=== PATIENT | female | born 1985 | race Caucasian/White ===

== ENCOUNTER 2021-01-06 19:25 | Emergency (ER) | payer MEDICAID ==
[~2021-01-06] VITALS: Ht 165.1 cm; Wt 90.9 kg
--- NOTE | 2021-01-06 19:54 | PHYS DOC ---
General Adult EDM: Chief Complaint: VAGINAL BLEEDING HPI: HPI: Patient is a 35-year-old female who presents with vaginal bleeding and . Patient states that she was sitting on the couch watching TV when she felt like her pants were wet. Patient states that she went to the bathroom and had bright red blood in the toilet. Patient is G4, P3. Patient denies pain. Patient states the last time that she delivered, she had to be hospitalized due to her blood pressure. Patient has history of hypertension. (CHINMAY DE SANTIAGO APRN) Review of Systems: Review of Systems: Constitutional: Denies fever or chills Eyes: Denies change in visual acuity HENT: Denies nasal congestion or sore throat Respiratory: Denies cough or shortness of breath Cardiovascular: Denies chest pain or edema GI: Denies abdominal pain, nausea, vomiting, bloody stools or diarrhea /vaginal: Denies dysuria, reports vaginal bleeding Musculoskeletal: Denies back pain or joint pain Integument: Denies rash Neurologic: Denies headache, focal weakness or sensory changes Endocrine: Denies polyuria or polydipsia Lymphatic: Denies swollen glands Psychiatric: Denies depression or anxiety (CHINMAY DE SANTIAGO APRN) Physical Exam: PE: Constitutional: Well developed, well nourished, no acute distress, non-toxic appearance. [] HENT: Normocephalic, atraumatic, bilateral external ears normal, oropharynx moist, no oral exudates, nose normal. [] Eyes: PERRLA, EOMI, conjunctiva normal, no discharge. [] Neck: Normal range of motion, no tenderness, supple, no stridor. [] Cardiovascular:Heart rate regular rhythm, no murmur [] Lungs & Thorax: Bilateral breath sounds clear to auscultation [] Abdomen/vaginal: Bowel sounds normal, soft, no tenderness, bright red vaginal bleeding Skin: Warm, dry, no erythema, no rash. [] Back: No tenderness, no CVA tenderness. [] Extremities: No tenderness, no cyanosis, no clubbing, ROM intact, no edema. [] Neurologic: Alert and oriented X 3, normal motor function, normal sensory function, no focal deficits noted. [] Psychologic: Affect normal, judgement normal, mood normal. [] (CHINMAY DE SANTIAGO MANAGER COMMUNICATION) EKG: EKG: [] (CHINMAY DE SANTIAGO APRN) Radiology/Procedures: Radiology/Procedures: []US OB <14 WKS +TV Clinical Indication: VAGINAL BLEEDING. LMP 09/30/2020 Comparison: None. Technique: Multiple grayscale images, color Doppler, and M-mode images of the uterus are obtained. Findings: There is a single intrauterine gestation in breech presentation. The placenta is anterior in location without evidence of placenta previa. The amount of amniotic fluid appears appropriate. Biometrical data: BPD = 2.65 cm for 14 weeks 5 days. HC = 10.06 cm for 14 weeks 5 days. AC = 8.07 cm for 14 weeks 3 days. FL = 1.41 cm for 14 weeks 1 days. CI ratio = 84.3. FL/HC ratio = 14.0. FL/AC ratio = 17.5. Overall, the estimated sonographic gestational age is 14 weeks 4 days for an estimated date of delivery of 07/03/2021. The estimated date of delivery provided by the last menstrual period is 07/07/2021. Estimated weight is not calculated. The estimated heart rate is 157 beats per minute. Impression: Single live intrauterine gestation with estimated sonographic gestational age of 14 weeks 4 days. Electronically signed by: Brown Cody MD (01/06/2021 9:49 PM) [facility] (CHINMAY DE SANTIAGO APRN) Heart Score: C/O Chest Pain: No Risk Factors: Risk Factors: DM, Current or recent (<one month) smoker, HTN, HLP, family history of CAD, obesity. Risk Scores: Score 0 - 3: 2.5% MACE over next 6 weeks - Discharge Home Score 4 - 6: 20.3% MACE over next 6 weeks - Admit for Clinical Observation Score 7 - 10: 72.7% MACE over next 6 weeks - Early Invasive Strategies (CHINMAY DE SANTIAGO APRN) Course & Med Decision Making: Course & Med Decision Making Pertinent Labs and Imaging studies reviewed. (See chart for details) [] Patient presents with vaginal bleeding with . Patient's last menstrual period was October [id number]. Patient does have an established OB. Bleeding started prior to arrival. Patient states that she had bright red/dark blood. CBC, CMP, type and screen, hCG quant, ultrasound ordered to rule out miscarriage. All labs unremarkable. UA negative for infection. Ultrasound showed single live intrauterine gestation with estimated sonographic gestational age of 14 weeks 4 days.The estimated heart rate is 157 beats per minute. Patient given strict follow-up instructions to follow-up with OB tomorrow morning. Patient given strict return precautions such as fever, increased abdominal pain ,bleeding, dizziness. Patient is hemodynamically stable. Patient is appreciative and agrees with discharge plan. (CHINMAY DE SANTIAGO APRN) Dragon Disclaimer: Dragjuan Disclaimer: This electronic medical record was generated, in whole or in part, using a voice recognition dictation system. (CHINMAY DE SANTIAGO APRN) Attending Co-Sign The patient was seen and interviewed as well as examined at the bedside. The chart was reviewed. The case was discussed. Agree with the plan of care. (TIFFANY BHAGAT DO) Departure Departure: Impression: Primary Impression: Vaginal bleeding in Disposition: 01 HOME / SELF CARE / HOMELESS Condition: STABLE Referrals: PCP,UNKNOWN (PCP) Patient Instructions: Vaginal Bleeding During , Second Trimester Additional Instructions: You were seen in the emergency room for vaginal bleeding while . Single live intrauterine gestation with estimated sonographic gestational age of 14 weeks 4 days. You need to call your LEARNING DISABILITIES TEACHER in the morning to set up an appointment for follow-up tomorrow. Return to the emergency room if you have increased abdominal pain, bleeding, lightheadedness. All your other labs were unremarkable. I am sending you home with a copy of your ultrasound to provide to your LEARNING DISABILITIES TEACHER. If you have pain or discomfort you may take Tylenol. EMERGENCY DEPARTMENT GENERAL DISCHARGE INSTRUCTIONS Thank you for coming to [facility] (ED) today and trusting us with you care. We trust that you had a positivie experience in our Emergency Department. If you wish to speak to the department management, you may call the director at [phone]. YOUR FOLLOW UP INSTRUCTIONS ARE FOLLOWS: 1. Do you have a private Doctor? If you do not have a private doctor, please ask for a resource list of physicians or clinics that may be able to assist you with follow up care. 2. The Emergency Physician has interpreted your x-rays. The X-Ray specialist will also review them. If there is a change in the findings, you will be notified in 48 hours when at all possible. 3. A lab test or culture has been done, your results will be reviewed and you will be notified if you need a change in treatment. ADDITIONAL INSTRUCTIONS AND INFORMATION: 1. Your care today has been supervised by a physician who is specially trained in emergency care. Many problems require more than one evaluation for a complete diagnosis and treatment. We recommend that you schedule your follow up appointment as recommended to ensure complete treatment of you illness or injury. If you are unable to obtain follow up care and continue to have a problem, or if your condition worsens, we recommend that you return to the ED. 2. We are not able to safely determine your condition over the phone nor are we able to give sound medical advice over the phone. For these safety reasons, if you call for medical advice we will ask you to come to the ED for further evaluation. 3. If you have any questions regarding these discharge instructions please call the ED at [phone]. SAFETY INFORMATION: In the interest of safety, wellness, and injury prevention; we encourage you to wear your sealbelt, if you smoke; quite smoking, and we encourage family to use a protective helmet for bicycling and other sporting events that present an increased risk for head injury. IF YOUR SYMPTOMS WORSEN OR NEW SYMPTOMS DEVELOP, OR YOU HAVE CONCERNS ABOUT YOUR CONDITION; OR IF YOUR CONDITION WORSENS WHILE YOU ARE WAITING FOR YOUR FOLLOW UP APPOINTMENT; EITHER CONTACT YOUR PRIMARY CARE DOCTOR, THE PHYSICIAN WHOSE NAME AND NUMBER YOU WERE GIVEN, OR RETURN TO THE ED IMMEDIATELY. CHINMAY DE SANTIAGO APRN January 06, 2021 19:54 TIFFANY BHAGAT DO January 10, 2021 06:33
[2021-01-06 21:43] LABS: BASO # 0.1 x10^3/uL (0.0-0.2); BASO % 1 % (0-3); EOS # 0.1 x10^3/uL (0.0-0.7); EOS % 1 % (0-3); HEMATOCRIT 38.7 % (36.0-47.0); LYMPH % 20 % (24-48); MEAN CORPUSCULAR HEMOGLOBIN 30 pg (25-35); MEAN CORPUSCULAR HGB CONC 34 g/dL (31-37); MEAN CORPUSCULAR VOLUME 88 fL (79-100); MONO # 0.6 x10^3/uL (0.0-1.1); MONO % 6 % (0-9); NEUT # 7.5 x10^3uL (1.8-7.7); NEUT % 73 % (31-73); PLATELET COUNT 306 x10^3/uL (140-400); RED BLOOD COUNT 4.38 x10^6/uL (3.50-5.40); RED CELL DISTRIBUTION WIDTH 15.3 % (11.5-14.5); WHITE BLOOD COUNT 10.2 x10^3/uL (4.0-11.0)
--- NOTE | 2021-01-06 21:51 | RAD ---
US OB <14 WKS +TV Clinical Indication: VAGINAL BLEEDING. LMP 09/30/2020 Comparison: None. Technique: Multiple grayscale images, color Doppler, and M-mode images of the uterus are obtained. Findings: There is a single intrauterine gestation in breech presentation. The placenta is anterior in location without evidence of placenta previa. The amount of amniotic fluid appears appropriate. Biometrical data: BPD = 2.65 cm for 14 weeks 5 days. HC = 10.06 cm for 14 weeks 5 days. AC = 8.07 cm for 14 weeks 3 days. FL = 1.41 cm for 14 weeks 1 days. CI ratio = 84.3. FL/HC ratio = 14.0. FL/AC ratio = 17.5. Overall, the estimated sonographic gestational age is 14 weeks 4 days for an estimated date of delive ry of 07/03/2021. The estimated date of delivery provided by the last menstrual period is 07/07/2021. Estimated weight is not calculated. The estimated heart rate is 157 beats per minute. Impression: Single live intrauterine gestation with estimated sonographic gestational age of 14 weeks 4 days. Electronically signed by: Brown Cody MD (01/06/2021 9:49 PM) [facility]
[2021-01-06 21:55] LABS: CALCIUM 8.3 mg/dL (8.5-10.1); CREATININE 0.6 mg/dL (0.6-1.0); GFR 115.1; POTASSIUM 3.9 mmol/L (3.5-5.1)
[2021-01-06 21:59] LABS: ALBUMIN 3.1 g/dL (3.4-5.0); ALBUMIN/GLOBULIN RATIO 0.9 (1.0-1.7); TOTAL BILIRUBIN 0.2 mg/dL (0.2-1.0); TOTAL PROTEIN 6.7 g/dL (6.4-8.2)
[2021-01-06 23:00] VITALS: BP 103/59
[2021-01-06 23:08] LABS: BACTERIA,URINE 0 /HPF (0-FEW); BILIRUBIN,URINE NEG (NEG); CLARITY,URINE CLEAR; COLOR,URINE YELLOW; GLUCOSE,URINE NEG (NEG); NITRITE,URINE NEG (NEG); RBC,URINE 0 /HPF (0-2); SQUAMOUS EPITHELIAL CELL,UR OCC /LPF; WBC,URINE OCC /HPF (0-4)
== END 2021-01-06 23:27 | disposition home or self-care (01) ==
LOC: ER 19:25
DX: O20.8 Other hemorrhage in early pregnancy (principal); Z3A.14 14 weeks gestation of pregnancy
CPT/HCPCS: 36415; 76801; 80053; 81001; 84702; 85025; 86850; 86900; 86901; 99285-25